=== PATIENT | male | born 1985 | race Two or more races ===

== ENCOUNTER 2021-05-22 11:05 | Emergency (ER) | payer OTHER ==
[2021-05-22] MEDS ORDERED: NAPROXEN500 MG PO (13:26)
== END 2021-05-22 13:37 | disposition home or self-care (01) ==
LOC: FER 11:05
DX: S20.212A Contusion of left front wall of thorax, initial encounter (principal); W20.8XXA Other cause of strike by thrown, projected or falling object, initial encounter; Y92.89 Other specified places as the place of occurrence of the external cause; Y99.0 Civilian activity done for income or pay
CPT/HCPCS: 71046; 96372; J1100; J1885